=== PATIENT | female | born 1985 | race Caucasian/White ===

== ENCOUNTER 2020-01-21 10:30 | Emergency (ER) | payer MEDICAID ==
[~2020-01-21] VITALS: Ht 154.9 cm; Wt 83.0 kg
[2020-01-21 10:35] VITALS: BP_SYST 106
[2020-01-21] MEDS ORDERED: ACETAMINOPHEN 500 MG TABLET PO ONE (11:30)
[2020-01-21] MEDS ORDERED: CEPHALEXIN 500 MG CAPSULE PO ONE (12:00)
[2020-01-21 12:18] VITALS: BP_SYST 108
== END 2020-01-21 12:16 | disposition home or self-care (01) ==
LOC: SED 10:30
DX: O23.13 Infections of bladder in pregnancy, third trimester (principal); Z3A.32 32 weeks gestation of pregnancy
CPT/HCPCS: 59025; 81002; 99283

== ENCOUNTER 2020-09-28 18:46 | Inpatient (IN) | payer MEDICAID, SELFPAY ==
[~2020-09-28] VITALS: Ht 154.9 cm; Wt 67.6 kg
[2020-09-28 19:04] VITALS: BP_SYST 108
[2020-09-28 20:58] LABS: BLOOD, URINE 2+ (NEGATIVE); COLOR,URINE YELLOW (YELLOW); GLUCOSE,URINE NEGATIVE (NEGATIVE); KETONES,URINE NEGATIVE (NEGATIVE); LEUKOCYTE ESTERASE ,URINE 3+ (NEGATIVE); NITRITE, URINE NEGATIVE (NEGATIVE); PROTEIN URINE 1+ (NEGATIVE)
[2020-09-28] MEDS ORDERED: ONDANSETRON HCL 4 MG/2 ML VIAL IVP ONE (21:00)
[2020-09-28] MEDS ORDERED: NACL 0.9% 1,000 ML IV ONE (21:00)
[2020-09-28] MEDS ORDERED: PANTOPRAZOLE SODIUM 40 MG/VIAL (PROTONIX) IVP ONE (21:00)
[2020-09-28 21:08] LABS: BILIRUBIN,URINE NEGATIVE (NEGATIVE); CLARITY/URINE HAZY (CLEAR)
[2020-09-28 21:09] LABS: BACTERIA,URINE MANY /HPF (None Seen); RBC,URINE 0-3 /HPF (0-3); WBC,URINE 80-100 /HPF (0-3)
[2020-09-28 21:10] LABS: MUCUS,URINE None Seen /LPF (None Seen)
[2020-09-28 21:46] LABS: BASOPHILS % (AUTO) 0.3 % (0.0-2.0); EOSINOPHILS % (AUTO) 0.1 % (0.0-4.0); LYMPHOCYTES % (AUTO) 16.8 % (20.5-51.5); MEAN CORPUSCULAR HEMOGLOBIN 23 pg (27-31); MEAN CORPUSCULAR HGB CONC 31 % (32-36); MEAN CORPUSCULAR VOLUME 74 fL (79.0-98.0); MONOCYTES # (AUTO) 0.6 K/uL (0.0-1.0); MONOCYTES % (AUTO) 4.8 % (1.7-9.3); NEUTROPHILS # (AUTO) 9.4 K/uL (1.8-7.7); PLATELET COUNT (AUTO) 730 K/uL (130-430); RED CELL DISTRIBUTION WIDTH 17.5 % (9.0-15.0); WHITE BLOOD COUNT (AUTO) 12.1 K/uL (4.8-10.8)
[2020-09-28 21:53] LABS: HEMATOCRIT 9.9 % (36-48); RED BLOOD CELL COUNT(AUTO) 1.33 MIL/uL (4.2-6.2)
[2020-09-28 21:55] LABS: CALCIUM 8.9 mg/dL (8.4-11.0); CREATININE 1.27 mg/dL (0.55-1.30); POTASSIUM 3.1 mmol/L (3.5-5.1)
[2020-09-28 21:59] LABS: INR 1.1 (0.8-1.2)
[2020-09-28 22:01] LABS: ALBUMIN 1.5 g/dL (3.4-4.8); TOTAL BILIRUBIN 0.1 mg/dL (0.0-1.0)
[2020-09-28] MEDS ORDERED: HYDROcodone/ACETAMIN 5-325 MG TAB (NORCO/ VICODIN) PO PRN (22:45)
[2020-09-28] MEDS ORDERED: ALBUTEROL SULFATE 0.083% 2.5 MG/3 ML VIAL.NEB INH PRN (22:45)
[2020-09-28] MEDS: NACL 0.9% 1,000 ML IV SCH (23:28)
[2020-09-28] MEDS ORDERED: cefTRIAXone 1 GM IVPB PREMIX 50 ML IV ONE (23:30)
[2020-09-28] MEDS ORDERED: KCL 20 mEq in 100 mL (PREMIX) 100 ML IV ONE (23:45)
[2020-09-29] VITALS (25 sets, daily range): BP systolic 95–125
[2020-09-29] MEDS ORDERED: NACL 0.9% 1,000 ML IV ONE (06:00)
[2020-09-29] MEDS: ACETAMINOPHEN 325 MG TABLET PO PRN ×3 (08:50→23:34)
[2020-09-29] MEDS: NACL 0.9% 1,000 ML IV SCH (08:51)
[2020-09-29] MEDS ORDERED: PANTOPRAZOLE SODIUM 40 MG/VIAL (PROTONIX) IVP SCH (09:00)
[2020-09-29] MEDS ORDERED: ONDA-8 TL (13:41)
[2020-09-29] MEDS ORDERED: IBUP-1970 (13:41)
[2020-09-29 15:45] LABS: ALBUMIN 1.4 g/dL (3.4-4.8); CALCIUM 7.8 mg/dL (8.4-11.0); CREATININE 1.42 mg/dL (0.55-1.30); POTASSIUM 4.5 mmol/L (3.5-5.1); TOTAL BILIRUBIN 0.7 mg/dL (0.0-1.0)
[2020-09-29 15:55] LABS: MEAN CORPUSCULAR HGB CONC 33 % (32-36)
[2020-09-29 16:08] LABS: BASOPHILS % (AUTO) 0.3 % (0.0-2.0); EOSINOPHILS % (AUTO) 0.1 % (0.0-4.0); LYMPHOCYTES # (AUTO) 1.9 K/uL (1.0-5.5); LYMPHOCYTES % (AUTO) 11.4 % (20.5-51.5); MEAN CORPUSCULAR HEMOGLOBIN 27 pg (27-31); MEAN CORPUSCULAR VOLUME 83 fL (79.0-98.0); MONOCYTES # (AUTO) 0.8 K/uL (0.0-1.0); NEUTROPHILS # (AUTO) 13.7 K/uL (1.8-7.7); NEUTROPHILS % (AUTO) 83.2 % (40.0-70.0); PLATELET COUNT (AUTO) 675 K/uL (130-430); RED BLOOD CELL COUNT(AUTO) 2.29 MIL/uL (4.2-6.2); WHITE BLOOD COUNT (AUTO) 16.4 K/uL (4.8-10.8)
[2020-09-29 16:11] LABS: HEMOGLOBIN 6.3 g/dL (12.0-16.0)
[2020-09-29] MEDS: D5W 1,000 ML IV SCH (16:33)
[2020-09-29] MEDS ORDERED: LEVOFLOXACIN IN DEXTROSE 5 % 100 ML IV ONE (17:00)
[2020-09-29] MEDS: PANTOPRAZOLE SODIUM 40 MG in NS 50 ML IV SCH ×2 (17:11→21:42)
[2020-09-29] MEDS: metroNIDAZOLE 500 mg/NS 100 ML IV SCH (21:37)
[2020-09-29 23:50] LABS: BILIRUBIN,URINE 1+ (NEGATIVE); BLOOD, URINE NEGATIVE (NEGATIVE); CLARITY/URINE CLEAR (CLEAR); COLOR,URINE YELLOW (YELLOW); GLUCOSE,URINE NEGATIVE (NEGATIVE); KETONES,URINE NEGATIVE (NEGATIVE); LEUKOCYTE ESTERASE ,URINE 1+ (NEGATIVE); NITRITE, URINE NEGATIVE (NEGATIVE); PROTEIN URINE 1+ (NEGATIVE)
[2020-09-30] VITALS (24 sets, daily range): BP systolic 99–123
[2020-09-30 00:06] LABS: BACTERIA,URINE FEW /HPF (None Seen); RBC,URINE 0-3 /HPF (0-3); WBC,URINE 20-50 /HPF (0-3)
[2020-09-30 00:07] LABS: MUCUS,URINE 1+ /LPF (None Seen)
[2020-09-30] MEDS: PANTOPRAZOLE SODIUM 40 MG in NS 50 ML IV SCH ×5 (02:28→21:08)
[2020-09-30 03:45] LABS: BASOPHILS # (AUTO) 0.4 K/uL (0.0-0.2); BASOPHILS % (AUTO) 2.6 % (0.0-2.0); EOSINOPHILS % (AUTO) 0.1 % (0.0-4.0); HEMATOCRIT 26.6 % (36-48); HEMOGLOBIN 8.7 g/dL (12.0-16.0); LYMPHOCYTES # (AUTO) 1.1 K/uL (1.0-5.5); MEAN CORPUSCULAR HEMOGLOBIN 28 pg (27-31); MEAN CORPUSCULAR HGB CONC 33 % (32-36); MEAN CORPUSCULAR VOLUME 84 fL (79.0-98.0); MONOCYTES # (AUTO) 0.6 K/uL (0.0-1.0); MONOCYTES % (AUTO) 4.1 % (1.7-9.3); NEUTROPHILS # (AUTO) 13.4 K/uL (1.8-7.7); NEUTROPHILS % (AUTO) 86.2 % (40.0-70.0); PLATELET COUNT (AUTO) 560 K/uL (130-430); RED BLOOD CELL COUNT(AUTO) 3.15 MIL/uL (4.2-6.2); RED CELL DISTRIBUTION WIDTH 18.9 % (9.0-15.0); WHITE BLOOD COUNT (AUTO) 15.5 K/uL (4.8-10.8)
[2020-09-30 04:02] LABS: INR 1.2 (0.8-1.2); PROTHROMBIN TIME 12.4 SECS (9.5-12.5)
[2020-09-30 04:12] LABS: TOTAL IRON BIND. CAPACITY 199 ug/dL (250-450)
[2020-09-30] MEDS: D5W 1,000 ML IV SCH ×2 (06:05→13:15)
[2020-09-30] MEDS: ACETAMINOPHEN 325 MG TABLET PO PRN ×2 (08:04→13:16)
[2020-09-30] MEDS: metroNIDAZOLE 500 mg/NS 100 ML IV SCH ×2 (08:05→20:34)
[2020-09-30] MEDS: MORPHINE 4 MG/ML INJ. SYRINGE IVP PRN ×2 (08:05→22:38)
[2020-09-30] MEDS: ONDANSETRON HCL 4 MG/2 ML VIAL IVP PRN ×2 (08:05→22:36)
[2020-09-30] MEDS ORDERED: SIMETHICONE 40 MG/0.6 ML ML ONE (15:16)
[2020-09-30] MEDS ORDERED: fentaNYL CITRATE/PF 100 MCG/2 ML AMP ONE (15:17)
[2020-09-30] MEDS: MEPERIDINE 100 MG INJ. 100 MG/ML VIAL ONE ×3 (16:01→16:09)
[2020-09-30] MEDS: MIDAZOLAM HCL 5 MG/5 ML VIAL ONE ×3 (16:01→16:08)
[2020-09-30] MEDS ORDERED: LEVOFLOXACIN 250 MG/D5W 50 ML IV SCH (17:00)
[2020-10-01] VITALS (21 sets, daily range): BP systolic 95–126
[2020-10-01] MEDS: ACETAMINOPHEN 325 MG TABLET PO PRN ×2 (00:38→12:53)
[2020-10-01] MEDS: D5W 1,000 ML IV SCH ×3 (01:29→18:49)
[2020-10-01] MEDS: PANTOPRAZOLE SODIUM 40 MG in NS 50 ML IV SCH ×4 (02:50→18:50)
[2020-10-01 06:30] LABS: BASOPHILS % (AUTO) 0.3 % (0.0-2.0); EOSINOPHILS % (AUTO) 0.1 % (0.0-4.0); HEMATOCRIT 22.7 % (36-48); HEMOGLOBIN 7.4 g/dL (12.0-16.0); LYMPHOCYTES # (AUTO) 1.7 K/uL (1.0-5.5); LYMPHOCYTES % (AUTO) 11.3 % (20.5-51.5); MEAN CORPUSCULAR HEMOGLOBIN 28 pg (27-31); MEAN CORPUSCULAR HGB CONC 33 % (32-36); MEAN CORPUSCULAR VOLUME 85 fL (79.0-98.0); MONOCYTES # (AUTO) 0.5 K/uL (0.0-1.0); MONOCYTES % (AUTO) 3.6 % (1.7-9.3); NEUTROPHILS # (AUTO) 12.7 K/uL (1.8-7.7); NEUTROPHILS % (AUTO) 84.7 % (40.0-70.0); PLATELET COUNT (AUTO) 439 K/uL (130-430); RED BLOOD CELL COUNT(AUTO) 2.67 MIL/uL (4.2-6.2); RED CELL DISTRIBUTION WIDTH 19.8 % (9.0-15.0)
[2020-10-01 06:34] LABS: ALBUMIN 1.1 g/dL (3.4-4.8); CALCIUM 7.5 mg/dL (8.4-11.0); CREATININE 1.04 mg/dL (0.55-1.30); POTASSIUM 3.5 mmol/L (3.5-5.1); TOTAL BILIRUBIN 0.3 mg/dL (0.0-1.0)
[2020-10-01 08:06] LABS: FOLATE (FOLIC ACID) 5.9 ng/mL (>3.0)
[2020-10-01] MEDS: metroNIDAZOLE 500 mg/NS 100 ML IV SCH ×2 (08:16→21:49)
[2020-10-01] MEDS ORDERED: COMMUNICATION ORDER XX ONE ×2 (09:15→09:30)
[2020-10-01] MEDS: PIPERACILLIN/TAZO 3.375/DEX-IS 50 ML IV SCH ×3 (10:32→21:52)
[2020-10-01] MEDS ORDERED: LIDOCAINE 1%, 20 ML MDV 20 ML ONE (10:38)
[2020-10-01] MEDS ORDERED: ETOMIDATE 20 MG/ 10 ML VIAL (AMIDATE) IVP PRN (11:30)
[2020-10-01] MEDS ORDERED: ETOMIDATE 20 MG/ 10 ML VIAL (AMIDATE) IVP ONE (11:30)
[2020-10-01] MEDS ORDERED: NALOXONE HCL 2 MG/2 ML SYR ONE (11:32)
[2020-10-01] MEDS: MORPHINE 4 MG/ML INJ. SYRINGE IVP PRN ×2 (12:55→17:50)
[2020-10-01 16:08] LABS: HEMOGLOBIN 7.8 g/dL (12.0-16.0)
[2020-10-01] MEDS ORDERED: LEVOFLOXACIN IN DEXTROSE IV SCH (17:00)
[2020-10-02] MEDS: PANTOPRAZOLE SODIUM 40 MG in NS 50 ML IV SCH ×5 (00:17→20:49)
[2020-10-02] MEDS: PIPERACILLIN/TAZO 3.375/DEX-IS 50 ML IV SCH ×2 (04:02→11:03)
[2020-10-02] MEDS: D5W 1,000 ML IV SCH ×2 (04:12→20:53)
[2020-10-02 06:43] LABS: CALCIUM 7.6 mg/dL (8.4-11.0); CREATININE 0.97 mg/dL (0.55-1.30); POTASSIUM 3.4 mmol/L (3.5-5.1)
[2020-10-02 08:00] VITALS: BP_SYST 122
[2020-10-02] MEDS: metroNIDAZOLE 500 mg/NS 100 ML IV SCH ×2 (08:25→20:48)
[2020-10-02 09:01] LABS: BASOPHILS % (AUTO) 0.2 % (0.0-2.0); EOSINOPHILS % (AUTO) 0.1 % (0.0-4.0); HEMATOCRIT 22.2 % (36-48); HEMOGLOBIN 7.1 g/dL (12.0-16.0); LYMPHOCYTES # (AUTO) 1.3 K/uL (1.0-5.5); LYMPHOCYTES % (AUTO) 9.4 % (20.5-51.5); MEAN CORPUSCULAR HEMOGLOBIN 27 pg (27-31); MEAN CORPUSCULAR HGB CONC 32 % (32-36); MEAN CORPUSCULAR VOLUME 85 fL (79.0-98.0); MONOCYTES # (AUTO) 0.5 K/uL (0.0-1.0); MONOCYTES % (AUTO) 3.6 % (1.7-9.3); NEUTROPHILS # (AUTO) 11.7 K/uL (1.8-7.7); NEUTROPHILS % (AUTO) 86.7 % (40.0-70.0); PLATELET COUNT (AUTO) 447 K/uL (130-430); RED BLOOD CELL COUNT(AUTO) 2.61 MIL/uL (4.2-6.2); RED CELL DISTRIBUTION WIDTH 20.2 % (9.0-15.0); WHITE BLOOD COUNT (AUTO) 13.5 K/uL (4.8-10.8)
[2020-10-02 11:30] VITALS: BP_SYST 107
[2020-10-02 15:28] VITALS: BP_SYST 109
[2020-10-02 17:35] LABS: HEMATOCRIT 20.4 % (36-48); HEMOGLOBIN 6.7 g/dL (12.0-16.0)
[2020-10-02 20:00] VITALS: BP_SYST 107
[2020-10-02] MEDS ORDERED: SOD FERRIC GLUC COMPLEX/SUC 125 MG in NS 100 ML IV SCH (23:45)
[2020-10-03] MEDS: D5W 1,000 ML IV SCH ×3 (00:30→20:47)
[2020-10-03 01:00] VITALS: BP_SYST 108
[2020-10-03 08:45] VITALS: BP_SYST 113
[2020-10-03] MEDS: PANTOPRAZOLE SODIUM 40 MG in NS 50 ML IV SCH (08:45)
[2020-10-03] MEDS ORDERED: SOD FERRIC GLUC COMPLEX/SUC 125 MG in NS 100 ML IV SCH (09:00)
[2020-10-03] MEDS: metroNIDAZOLE 500 mg/NS 100 ML IV SCH ×2 (10:23→20:47)
[2020-10-03 11:37] VITALS: BP_SYST 108
[2020-10-03 11:42] LABS: BASOPHILS % (AUTO) 0.4 % (0.0-2.0); EOSINOPHILS % (AUTO) 0.3 % (0.0-4.0); HEMATOCRIT 24.4 % (36-48); HEMOGLOBIN 8.2 g/dL (12.0-16.0); LYMPHOCYTES # (AUTO) 1.4 K/uL (1.0-5.5); LYMPHOCYTES % (AUTO) 14.1 % (20.5-51.5); MEAN CORPUSCULAR HEMOGLOBIN 29 pg (27-31); MEAN CORPUSCULAR HGB CONC 33 % (32-36); MEAN CORPUSCULAR VOLUME 85 fL (79.0-98.0); MONOCYTES # (AUTO) 0.4 K/uL (0.0-1.0); MONOCYTES % (AUTO) 4.2 % (1.7-9.3); NEUTROPHILS # (AUTO) 8.1 K/uL (1.8-7.7); PLATELET COUNT (AUTO) 408 K/uL (130-430); RED BLOOD CELL COUNT(AUTO) 2.86 MIL/uL (4.2-6.2); RED CELL DISTRIBUTION WIDTH 19.2 % (9.0-15.0)
[2020-10-03 11:55] LABS: CALCIUM 7.4 mg/dL (8.4-11.0); CREATININE 0.9 mg/dL (0.55-1.30); POTASSIUM 3.7 mmol/L (3.5-5.1)
[2020-10-03 12:01] LABS: ALBUMIN 1.2 g/dL (3.4-4.8); TOTAL BILIRUBIN 0.2 mg/dL (0.0-1.0)
[2020-10-03 15:18] VITALS: BP_SYST 109
[2020-10-03 17:32] LABS: HEMATOCRIT 24.9 % (36-48); HEMOGLOBIN 8.3 g/dL (12.0-16.0)
[2020-10-03] MEDS ORDERED: PANTOPRAZOLE SODIUM 40 MG/VIAL (PROTONIX) IVP SCH (21:00)
[2020-10-04 00:27] VITALS: BP_SYST 105
[2020-10-04 04:00] VITALS: BP_SYST 104
[2020-10-04 11:07] LABS: AMEBIASIS ANTIBODIES Negative (Negative)
== END 2020-10-04 04:50 | disposition short-term general hospital (02) | DRG 720 ==
LOC: SED 18:46 → SIC 22:40 → STU 10-01 19:00
PROVIDERS: ADMIT Internal Medicine Hospice and Palliative Medicine; ATTEND Internal Medicine Hospice and Palliative Medicine
PROC: 30233N1 Transfusion of Nonautologous Red Blood Cells into Peripheral Vein, Percutaneous Approach (ICD-10-PCS; 2020-09-29)
PROC: 0DB78ZX Excision of Stomach, Pylorus, Via Natural or Artificial Opening Endoscopic, Diagnostic (ICD-10-PCS; 2020-09-30)
PROC: 0DB98ZX Excision of Duodenum, Via Natural or Artificial Opening Endoscopic, Diagnostic (ICD-10-PCS; principal; 2020-09-30 16:00)
PROC: 0T9030Z Drainage of Right Kidney with Drainage Device, Percutaneous Approach (ICD-10-PCS; 2020-10-02)
DX: A41.9 Sepsis, unspecified organism (principal); J90 Pleural effusion, not elsewhere classified; K26.4 Chronic or unspecified duodenal ulcer with hemorrhage; K68.12 Psoas muscle abscess; N39.0 Urinary tract infection, site not specified; B96.20 Unspecified Escherichia coli [E. coli] as the cause of diseases classified elsewhere; E87.6 Hypokalemia; D62 Acute posthemorrhagic anemia; N13.6 Pyonephrosis; K20.91 Esophagitis, unspecified with bleeding; K44.9 Diaphragmatic hernia without obstruction or gangrene; Z20.822 Contact with and (suspected) exposure to COVID-19; E43 Unspecified severe protein-calorie malnutrition; K76.9 Liver disease, unspecified; Z98.891 History of uterine scar from previous surgery; Z68.28 Body mass index [BMI] 28.0-28.9, adult
CPT/HCPCS: 36415; 43239; 71045; 76376; 76604; 76856-TC; 77012; 80048; 80053; 81000-TC; 82272; 82607; 82728; 82746; 83540-TC; 83550-TC; 83690-TC; 84703; 85018-TC; 85025; 85044-TC; 85610-TC; 85651-TC; 85730-TC; 86480; 86635; 86753; 86870; 86886; 86900; 86901; 86920; 87040-TC; 87081; 87086; 88305; 88312; 88313; 93005; 93306; 94760; 96361; 96365; 96366; 96375; C1729; C1751; C1769; C9113; G0378; J0696; J1956; J2001; J2175; J2250; J2270; J2310; J2405; J2543; J2916; J3010; J3480; J3490; J7030; J7040; J7042; J7050; J7060; P9021; Q9967

== ENCOUNTER 2021-04-07 12:14 | Emergency (ER) | payer MEDICAID, SELFPAY ==
[~2021-04-07] VITALS: Ht 154.9 cm; Wt 66.7 kg
[~2021-04-07 12:14] MED LIST: HYDR-3917 PO; LEVO500T89 PO; OMEP40CA20 PO; ONDA-8 TL
[2021-04-07 12:50] VITALS: BP_SYST 116
[2021-04-07] MEDS ORDERED: IBUP-1969 PO (13:49)
[2021-04-07] MEDS ORDERED: HYDR-3917 PO (13:49)
[2021-04-07 13:59] VITALS: BP_SYST 116
== END 2021-04-07 13:59 | disposition home or self-care (01) ==
LOC: SED 12:14
DX: S63.502A Unspecified sprain of left wrist, initial encounter (principal); Z79.899 Other long term (current) drug therapy; X50.0XXA Overexertion from strenuous movement or load, initial encounter; Y93.89 Activity, other specified; Y92.89 Other specified places as the place of occurrence of the external cause; Y99.8 Other external cause status
CPT/HCPCS: 99283

== ENCOUNTER 2021-06-01 00:09 | Emergency (ER) | payer MEDICAID ==
[~2021-06-01] VITALS: Ht 154.9 cm; Wt 66.7 kg
[~2021-06-01 00:09] MED LIST changes: +IBUP-1969 PO
--- NOTE | 2021-06-01 00:30 | NUR ---
Placed in room 04. Placed on rn cardiac cath, blood pressure machine and pulse oximeter. To gown for exam. Side rails up.
[2021-06-01 00:35] VITALS: BP_SYST 143
--- NOTE | 2021-06-01 00:40 | NUR ---
pt arrived for r sided lower wisdom tooth pain. 04/14 pain. pt states it is cracked and has an appointment with her dentist but it sint til later. a&ox4. pt states she has joey this pain before
--- NOTE | 2021-06-01 01:04 | NUR ---
ER Dr. Mathur at bedside examining patient.
[2021-06-01] MEDS ORDERED: AMOX-423 PO (01:08)
[2021-06-01] MEDS ORDERED: AMOXICILLIN/CLAVULANATE POTASSIUM 250 MG/5 ML, 75 ML BTL PO ONE (01:15)
[2021-06-01] MEDS ORDERED: KETOROLAC TROMETHAMINE 60 MG/2 ML VIAL IM ONE ×2 (01:15→01:19)
[2021-06-01] MEDS ORDERED: AMOXICILLIN/CLAVULANATE POTASSIUM 500 MG TABLET ONE (01:19)
[2021-06-01 01:26] VITALS: BP_SYST 143
--- NOTE | 2021-06-01 01:28 | NUR ---
Patient given written and verbal discharge instructions and verbalizes understanding. ER MD discussed with patient the results and treatment provided. Patient in stable condition. ID arm band removed. Rx of augmentin given. Patient educated on pain management and to follow up with PMD. Pain Scale 8/10. Opportunity for questions provided and answered. Medication side effect fact sheet provided.
[2021-06-01] MEDS ORDERED: AMOXICILLIN/CLAVULANATE POTASSIUM 500 MG TABLET PO ONE (01:30)
[2021-06-01] MEDS ORDERED: IBUP-1971 PO (05:52)
== END 2021-06-01 01:28 | disposition home or self-care (01) ==
LOC: SED 00:09
DX: K08.89 Other specified disorders of teeth and supporting structures (principal); Z79.899 Other long term (current) drug therapy
CPT/HCPCS: 96372; 99283; J1885

== ENCOUNTER 2021-06-29 19:16 | Day surgery (SDC) | payer MEDICAID, SELFPAY ==
[~2021-06-29] VITALS: Ht 154.9 cm; Wt 71.7 kg
[~2021-06-29 19:16] MED LIST changes: +AMOX-423 PO; +IBUP-1971 PO; -LEVO500T89 PO; +LEVO500T90 PO
[2021-06-29 19:27] VITALS: BP_SYST 104
[2021-06-29 20:33] LABS: BASOPHILS # (AUTO) 0.1 K/uL (0.0-0.2); BASOPHILS % (AUTO) 0.6 % (0.0-2.0); EOSINOPHILS # (AUTO) 0.1 K/uL (0.0-0.4); EOSINOPHILS % (AUTO) 0.6 % (0.0-4.0); HEMATOCRIT 26.2 % (36-48); HEMOGLOBIN 8.8 g/dL (12.0-16.0); LYMPHOCYTES # (AUTO) 2.6 K/uL (1.0-5.5); LYMPHOCYTES % (AUTO) 24.4 % (20.5-51.5); MEAN CORPUSCULAR HEMOGLOBIN 28 pg (27-31); MEAN CORPUSCULAR HGB CONC 34 % (32-36); MEAN CORPUSCULAR VOLUME 82 fL (79.0-98.0); MONOCYTES # (AUTO) 0.6 K/uL (0.0-1.0); MONOCYTES % (AUTO) 5.4 % (1.7-9.3); NEUTROPHILS # (AUTO) 7.4 K/uL (1.8-7.7); PLATELET COUNT (AUTO) 302 K/uL (130-430); RED BLOOD CELL COUNT(AUTO) 3.18 MIL/uL (4.2-6.2); RED CELL DISTRIBUTION WIDTH 13.9 % (9.0-15.0); WHITE BLOOD COUNT (AUTO) 10.7 K/uL (4.8-10.8)
[2021-06-29 20:34] LABS: CALCIUM 8.6 mg/dL (8.4-11.0); CREATININE 0.93 mg/dL (0.55-1.30); POTASSIUM 3.7 mmol/L (3.5-5.1)
[2021-06-29] MEDS ORDERED: NACL 0.9% 1,000 ML IV ONE ×2 (21:00→23:30)
[2021-06-29 21:01] LABS: ALBUMIN 2.8 g/dL (3.4-4.8); TOTAL BILIRUBIN 0.1 mg/dL (0.0-1.0)
[2021-06-29] MEDS ORDERED: fentaNYL CITRATE/PF 100 MCG/2 ML AMP IM ONE (23:15)
[2021-06-30] MEDS ORDERED: OXYTOCIN 10 UNIT/ML VIAL IM ONE
[2021-06-30] MEDS ORDERED: PROPOFOL 200MG/ 20ML VIAL (DIPRIVAN) IV ONE (01:38)
[2021-06-30] MEDS ORDERED: LR 1,000 ML IV.SOLN IV ONE (01:38)
[2021-06-30] MEDS ORDERED: ONDANSETRON HCL 4 MG/2 ML VIAL IVP ONE (01:38)
[2021-06-30] MEDS ORDERED: OXYTOCIN 10 UNIT/ML VIAL IV ONE (01:38)
[2021-06-30] MEDS ORDERED: SUCCINYLCHOLINE CHLORIDE 20 MG/ML(QUELICIN) IVP ONE (01:38)
[2021-06-30] MEDS ORDERED: NS IRRIG SOLN 1000 ML IR ONE (01:38)
[2021-06-30] MEDS ORDERED: GLYCOPYRROLATE 0.2 MG/ML VIAL IJ ONE (01:38)
[2021-06-30] MEDS ORDERED: LIDOCAINE PF 2%, 200 MG/10 ML AMPUL.LUER (EPIDURAL) INJ ONE (01:38)
[2021-06-30] MEDS ORDERED: KETOROLAC TROMETHAMINE 30 MG VIAL IVP ONE (01:38)
[2021-06-30] MEDS ORDERED: METOCLOPRAMIDE HCL 10 MG/2 ML VIAL IVP ONE (01:38)
[2021-06-30] MEDS ORDERED: SEVOFLURANE 15 MIN GAS INH ONE (01:38)
[2021-06-30] MEDS ORDERED: fentaNYL CITRATE 250 MCG/5 ML AMP IV ONE (01:38)
[2021-06-30] MEDS ORDERED: WATER FOR IRRIGATION,STERILE 1,000 ML IRRIG.SOLN IR ONE (01:38)
[2021-06-30] MEDS ORDERED: OXYCODONE/ACETAMINOPHEN 5-325 TABLET PO PRN ×2 (02:15)
[2021-06-30] MEDS ORDERED: ONDANSETRON HCL 4 MG/2 ML VIAL IVP PRN ×2 (02:15→02:30)
[2021-06-30] MEDS ORDERED: HYDROcodone/ACETAMIN 5-325 MG TAB (NORCO/ VICODIN) PO PRN (02:15)
[2021-06-30] MEDS ORDERED: LR 1,000 ML IV SCH (02:30)
[2021-06-30] MEDS ORDERED: HYDROmorphone 2 MG/ML VIAL IVP PRN (02:30)
[2021-06-30] MEDS ORDERED: METOCLOPRAMIDE HCL 10 MG/2 ML VIAL IVP PRN (02:30)
[2021-06-30] MEDS ORDERED: KETOROLAC TROMETHAMINE 30 MG VIAL IVP PRN (02:30)
[2021-06-30] MEDS ORDERED: HYDROmorphone 1 MG/ML INJ. CARTRIDGE IVP PRN (02:30)
[2021-06-30 04:45] VITALS: BP_SYST 98
[2021-06-30 08:25] VITALS: BP_SYST 122
== END 2021-06-30 05:00 | disposition home or self-care (01) ==
LOC: SED 19:16 → SDS 23:56 → SMU 23:56 → SED 06-30 01:30 → SDS 06-30 05:00
PROVIDERS: ATTEND Specialist
DX: O03.4 Incomplete spontaneous abortion without complication (principal); D64.9 Anemia, unspecified; Z79.899 Other long term (current) drug therapy
CPT/HCPCS: 36415; 59812; 76801; 76817; 80053; 84702; 85025; 86886; 86900; 86901; 86920; 87426; 88305; 93005; 96360; 96361; 96372; 99285; J0330; J1885; J2001; J2405; J2590; J2704; J2765; J3010; J3490; J7030; J7120

== ENCOUNTER 2021-10-29 19:49 | Emergency (ER) | payer BC, MEDICAID ==
[~2021-10-29] VITALS: Ht 154.9 cm; Wt 76.2 kg
[2021-10-29 20:01] VITALS: BP_SYST 116
--- NOTE | 2021-10-29 22:17 | NUR ---
Pt brought by self, A&Ox4, pt presents to ER with L wrist, L shoulder pain since yesterday, pt works picking up boxes, denies trauma, skin pink and warm, cap refill<3, VSS
--- NOTE | 2021-10-29 22:45 | NUR ---
Dr Jane evaluating patient in the triage room
[2021-10-29] MEDS ORDERED: NAPR-1172 PO (22:51)
[2021-10-29 22:57] VITALS: BP_SYST 116
--- NOTE | 2021-10-29 22:59 | NUR ---
Patient given written and verbal discharge instructions and verbalizes understanding. ER MD discussed with patient the results and treatment provided. Patient in stable condition. ID arm band removed. Rx of Naproxen given. Patient educated on pain management and to follow up with PMD. Pain Scale 2/10 . Opportunity for questions provided and answered. Medication side effect fact sheet provided.
== END 2021-10-29 22:59 | disposition home or self-care (01) ==
LOC: SED 19:49
DX: M77.8 Other enthesopathies, not elsewhere classified (principal); Z79.899 Other long term (current) drug therapy
CPT/HCPCS: 73030; 99284

== ENCOUNTER 2021-12-01 08:27 | Emergency (ER) | payer BC, MEDICAID ==
[~2021-12-01] VITALS: Ht 154.9 cm; Wt 73.9 kg
[~2021-12-01 08:27] MED LIST changes: -AMOX-423 PO; -HYDR-3917 PO; -IBUP-1969 PO; -IBUP-1971 PO; -LEVO500T90 PO; +NAPR-1172 PO; -OMEP40CA20 PO; -ONDA-8 TL
--- NOTE | 2021-12-01 09:06 | NUR ---
DR SNOWDEN AT BEDSIDE EXAMINING PT.
--- NOTE | 2021-12-01 09:20 | NUR ---
TRANSPORTED TO ULTRASOUND DEPT.
[2021-12-01 09:39] LABS: BASOPHILS % (AUTO) 0.8 % (0.0-2.0); EOSINOPHILS # (AUTO) 0.1 K/uL (0.0-0.4); HEMATOCRIT 28.5 % (36-48); HEMOGLOBIN 8.8 g/dL (12.0-16.0); LYMPHOCYTES # (AUTO) 1.5 K/uL (1.0-5.5); LYMPHOCYTES % (AUTO) 25.6 % (20.5-51.5); MEAN CORPUSCULAR HEMOGLOBIN 20 pg (27-31); MEAN CORPUSCULAR HGB CONC 31 % (32-36); MEAN CORPUSCULAR VOLUME 64 fL (79.0-98.0); MONOCYTES # (AUTO) 0.3 K/uL (0.0-1.0); MONOCYTES % (AUTO) 5.8 % (1.7-9.3); NEUTROPHILS # (AUTO) 3.9 K/uL (1.8-7.7); NEUTROPHILS % (AUTO) 66.8 % (40.0-70.0); PLATELET COUNT (AUTO) 328 K/uL (130-430); RED BLOOD CELL COUNT(AUTO) 4.49 MIL/uL (4.2-6.2); RED CELL DISTRIBUTION WIDTH 20.1 % (9.0-15.0); WHITE BLOOD COUNT (AUTO) 5.8 K/uL (4.8-10.8)
[2021-12-01 09:56] LABS: PROTHROMBIN TIME 9.7 SECS (9.5-12.5)
--- NOTE | 2021-12-01 11:42 | NUR ---
Patient given written and verbal discharge instructions and verbalizes understanding. ER MD DR SNOWDEN discussed with patient the results and treatment provided. Patient in stable condition. ID arm band removed. Patient educated on pain management and to follow up with PMD. Pain Scale 0 . Opportunity for questions provided and answered. Medication side effect fact sheet provided.
== END 2021-12-01 11:45 | disposition home or self-care (01) ==
LOC: SED 08:27
DX: O20.9 Hemorrhage in early pregnancy, unspecified (principal); Z79.899 Other long term (current) drug therapy
CPT/HCPCS: 36415; 76801; 84702; 85025; 85610-TC; 85730-TC; 86900; 86901; 99284

== ENCOUNTER 2021-12-04 14:09 | Emergency (ER) | payer BC, MEDICAID ==
[~2021-12-04] VITALS: Ht 154.9 cm; Wt 73.9 kg
[2021-12-04 14:20] VITALS: BP_SYST 108
--- NOTE | 2021-12-04 14:20 | NUR ---
pt. triaged, placed back to WR
--- NOTE | 2021-12-04 14:20 | NUR ---
Pt. came in to be evaluated for related vaginal bleeding, pt. states she is about 7 weeks but has been bleeding since at least thursday, came in thursday and was told to f/u, bleeding continues to occur and is heavier
--- NOTE | 2021-12-04 14:27 | NUR ---
ER in triage examining patient.
[2021-12-04 16:05] LABS: BASOPHILS # (AUTO) 0.1 K/uL (0.0-0.2); BASOPHILS % (AUTO) 0.7 % (0.0-2.0); EOSINOPHILS # (AUTO) 0.1 K/uL (0.0-0.4); EOSINOPHILS % (AUTO) 0.8 % (0.0-4.0); HEMATOCRIT 28.7 % (36-48); HEMOGLOBIN 8.9 g/dL (12.0-16.0); LYMPHOCYTES # (AUTO) 2.1 K/uL (1.0-5.5); LYMPHOCYTES % (AUTO) 26.5 % (20.5-51.5); MEAN CORPUSCULAR HEMOGLOBIN 20 pg (27-31); MEAN CORPUSCULAR HGB CONC 31 % (32-36); MEAN CORPUSCULAR VOLUME 63 fL (79.0-98.0); MONOCYTES # (AUTO) 0.4 K/uL (0.0-1.0); MONOCYTES % (AUTO) 4.5 % (1.7-9.3); NEUTROPHILS # (AUTO) 5.3 K/uL (1.8-7.7); NEUTROPHILS % (AUTO) 67.5 % (40.0-70.0); PLATELET COUNT (AUTO) 378 K/uL (130-430); RED BLOOD CELL COUNT(AUTO) 4.54 MIL/uL (4.2-6.2); RED CELL DISTRIBUTION WIDTH 19.8 % (9.0-15.0); WHITE BLOOD COUNT (AUTO) 7.8 K/uL (4.8-10.8)
--- NOTE | 2021-12-04 16:07 | NUR ---
labs have been drawn
--- NOTE | 2021-12-04 16:55 | NUR ---
PT. STILL WAITING UPDATE GIVEN
[2021-12-04 18:05] VITALS: BP_SYST 120
--- NOTE | 2021-12-04 18:05 | NUR ---
Patient given written and verbal discharge instructions and verbalizes understanding. discussed with patient the results and treatment provided. Patient in stable condition. ID arm band removed. Patient educated on pain management and to follow up thursday here. Opportunity for questions provided and answered.
== END 2021-12-04 18:05 | disposition home or self-care (01) ==
LOC: SED 14:09
DX: O20.9 Hemorrhage in early pregnancy, unspecified (principal); Z79.899 Other long term (current) drug therapy; Z3A.01 Less than 8 weeks gestation of pregnancy
CPT/HCPCS: 36415; 81002; 81025; 84702; 85025; 99283

== ENCOUNTER 2021-12-08 17:48 | Emergency (ER) | payer BC, MEDICAID ==
[~2021-12-08] VITALS: Ht 154.9 cm; Wt 77.1 kg
[2021-12-08 17:48] VITALS: BP_SYST 122
[2021-12-08] MEDS ORDERED: DIPH-TET-PERTUS Vaccine 0.5 ML VIAL (ADACEL) I.M. ONE (18:15)
[2021-12-08] MEDS ORDERED: LIDOCAINE 1% 10 MG/ML, 20 ML MDV INJ ONE (18:15)
[2021-12-08] MEDS ORDERED: BACITRACIN 1 GM OINT TP ONE (18:15)
[2021-12-08 18:45] LABS: EOSINOPHILS # (AUTO) 0.1 K/uL (0.0-0.4); HEMOGLOBIN 8.1 g/dL (12.0-16.0); PLATELET COUNT (AUTO) 356 K/uL (130-430); WHITE BLOOD COUNT (AUTO) 7.9 K/uL (4.8-10.8)
[2021-12-08 18:57] LABS: BASOPHILS % (AUTO) 0.6 % (0.0-2.0); EOSINOPHILS % (AUTO) 1.7 % (0.0-4.0); HEMATOCRIT 26.6 % (36-48); LYMPHOCYTES # (AUTO) 2.1 K/uL (1.0-5.5); LYMPHOCYTES % (AUTO) 26.2 % (20.5-51.5); MEAN CORPUSCULAR HEMOGLOBIN 20 pg (27-31); MEAN CORPUSCULAR HGB CONC 31 % (32-36); MEAN CORPUSCULAR VOLUME 65 fL (79.0-98.0); MONOCYTES # (AUTO) 0.5 K/uL (0.0-1.0); MONOCYTES % (AUTO) 6.6 % (1.7-9.3); NEUTROPHILS # (AUTO) 5.1 K/uL (1.8-7.7); NEUTROPHILS % (AUTO) 64.9 % (40.0-70.0)
[2021-12-08 21:35] VITALS: BP_SYST 127
== END 2021-12-08 21:35 | disposition home or self-care (01) ==
LOC: SED 17:48
DX: O20.9 Hemorrhage in early pregnancy, unspecified (principal); Z79.899 Other long term (current) drug therapy; Z3A.08 8 weeks gestation of pregnancy
CPT/HCPCS: 36415; 76801; 84702; 85025; 99284

== ENCOUNTER 2022-01-03 15:52 | Emergency (ER) | payer BC, MEDICAID ==
[~2022-01-03] VITALS: Ht 154.9 cm; Wt 77.1 kg
[2022-01-03 16:47] VITALS: BP_SYST 116
--- NOTE | 2022-01-03 16:50 | NUR ---
Patient triaged and placed in waiting room. VSS and patient appears in no acute distress at this time. Accompanied by SON, awaiting available bed, and MD notified of need for MSE.
--- NOTE | 2022-01-03 22:10 | NUR ---
Patient to [facility] for evaluation. Report given to MARISELA Agudelo
--- NOTE | 2022-01-03 22:11 | NUR ---
Patient brought in from home accompanied by son complaining of left ankle pain x1 week. Patient states that she tripped over a plywood twice in the last week. Patient reports that she usually wears steel toed boots at work and has not aggravated her but today pain is 6 out of 10. Patient seen limping. Pedal pulses present. No acute distress noted.
--- NOTE | 2022-01-03 22:12 | NUR ---
ER at bedside examining patient.
[2022-01-03] MEDS ORDERED: IBUP-1969 PO (22:50)
[2022-01-03 22:57] VITALS: BP_SYST 110
--- NOTE | 2022-01-03 22:57 | NUR ---
Patient given written and verbal discharge instructions and verbalizes understanding. ER MD discussed with patient the results and treatment provided. Patient in stable condition. ID arm band removed. Patient educated on pain management and to follow up with PMD. Pain Scale 4/10 Opportunity for questions provided and answered.
== END 2022-01-03 22:57 | disposition home or self-care (01) ==
LOC: SED 15:52
DX: S93.402A Sprain of unspecified ligament of left ankle, initial encounter (principal); Z79.899 Other long term (current) drug therapy; W01.0XXA Fall on same level from slipping, tripping and stumbling without subsequent striking against object, initial encounter; Y93.89 Activity, other specified; Y92.89 Other specified places as the place of occurrence of the external cause; Y99.8 Other external cause status
CPT/HCPCS: 99283

== ENCOUNTER 2022-04-07 01:41 | Emergency (ER) | payer MEDICAID ==
[~2022-04-07] VITALS: Ht 154.9 cm; Wt 84.4 kg
[~2022-04-07 01:41] MED LIST changes: +IBUP-1969 PO
[2022-04-07 01:53] VITALS: BP_SYST 102
--- NOTE | 2022-04-07 02:14 | NUR ---
Patient triaged and placed in room 4. VSS and patient appears in no acute distress at this time. MD Brar notified of need for MSE. Report given to MARISELA Le.
--- NOTE | 2022-04-07 02:15 | NUR ---
Urine collected and sent to lab. Preg test: (+)
--- NOTE | 2022-04-07 02:54 | NUR ---
receved pt resting in bed, states she has backpains pain 5/10 urine sent to lab. awaits review by
[2022-04-07] MEDS ORDERED: ACETAMINOPHEN 500 MG TABLET PO ONE (03:15)
--- NOTE | 2022-04-07 04:00 | NUR ---
PT RESTING IN BED .SHE DENIES PAIN VITALS WNL
--- NOTE | 2022-04-07 06:08 | NUR ---
VITALS WNL PT SLEEPIN QUELTY
--- NOTE | 2022-04-07 06:42 | NUR ---
CARY WREN REVIEWED URINE RESULTS FOR PREG TEST-POS
[2022-04-07 06:57] LABS: BILIRUBIN,URINE NEGATIVE (NEGATIVE); BLOOD, URINE NEGATIVE (NEGATIVE); CLARITY/URINE CLEAR (CLEAR); COLOR,URINE YELLOW (YELLOW); GLUCOSE,URINE NEGATIVE (NEGATIVE); KETONES,URINE NEGATIVE (NEGATIVE); LEUKOCYTE ESTERASE ,URINE NEGATIVE (NEGATIVE); NITRITE, URINE NEGATIVE (NEGATIVE); PROTEIN URINE NEGATIVE (NEGATIVE); UROBILINOGEN,URINE 0.2 (0.2-1.0)
[2022-04-07 07:04] LABS: BASOPHILS % (AUTO) 0.6 % (0.0-2.0); EOSINOPHILS # (AUTO) 0.1 K/uL (0.0-0.4); EOSINOPHILS % (AUTO) 0.8 % (0.0-4.0); HEMATOCRIT 32.5 % (36-48); LYMPHOCYTES # (AUTO) 2.3 K/uL (1.0-5.5); LYMPHOCYTES % (AUTO) 32.8 % (20.5-51.5); MEAN CORPUSCULAR VOLUME 69 fL (79.0-98.0); MONOCYTES # (AUTO) 0.4 K/uL (0.0-1.0); NEUTROPHILS # (AUTO) 4.2 K/uL (1.8-7.7); NEUTROPHILS % (AUTO) 59.8 % (40.0-70.0); PLATELET COUNT (AUTO) 289 K/uL (130-430); RED BLOOD CELL COUNT(AUTO) 4.69 MIL/uL (4.2-6.2); RED CELL DISTRIBUTION WIDTH 19.6 % (9.0-15.0)
--- NOTE | 2022-04-07 07:11 | NUR ---
PT TAKEN TO UTRA SOUND .
--- NOTE | 2022-04-07 07:20 | NUR ---
received report from jeff parker. pt aao x4. resp even and nonlabored. vss. pending dispo
[2022-04-07] MEDS ORDERED: IBUPROFEN 800 MG TABLET PO ONE (07:45)
[2022-04-07] MEDS ORDERED: ACET-2634 PO (08:49)
[2022-04-07 09:00] VITALS: BP_SYST 118
--- NOTE | 2022-04-07 09:05 | NUR ---
Patient given written and verbal discharge instructions and verbalizes understanding. ER MD discussed with patient the results and treatment provided. Patient in stable condition. ID arm band removed. Rx of given. Patient educated on pain management and to follow up with PMD. Pain Scale . Opportunity for questions provided and answered. Medication side effect fact sheet provided. aao x4. resp even and nonlabored. vss. ambulatory with steady gait
== END 2022-04-07 09:06 | disposition home or self-care (01) ==
LOC: SED 01:41
DX: O26.891 Other specified pregnancy related conditions, first trimester (principal); Z3A.11 11 weeks gestation of pregnancy
CPT/HCPCS: 36415; 76801; 81003; 81025; 84702; 85025; 99285

== ENCOUNTER 2022-10-20 12:07 | Emergency (ER) | payer MEDICAID ==
[~2022-10-20] VITALS: Ht 154.9 cm; Wt 78.9 kg
[~2022-10-20 12:07] MED LIST changes: +ACET-2634 PO
[2022-10-20 12:15] VITALS: BP_SYST 109
[2022-10-20] MEDS ORDERED: IBUP-1969 PO (13:41)
[2022-10-20] MEDS ORDERED: GUAI-723 PO (13:43)
[2022-10-20] MEDS ORDERED: PRED20TA PO (13:43)
[2022-10-20] MEDS ORDERED: ALBMDI INH (13:43)
[2022-10-20] MEDS ORDERED: BENZ100C92 PO (13:43)
[2022-10-20] MEDS ORDERED: LIDOCAINE 1% 10 MG/ML, 20 ML MDV INJ ONE (14:15)
== END 2022-10-20 15:30 | disposition home or self-care (01) ==
LOC: SED 12:07
DX: M67.432 Ganglion, left wrist (principal); J20.9 Acute bronchitis, unspecified; R05.9 Cough, unspecified; Z79.899 Other long term (current) drug therapy
CPT/HCPCS: 99283

== ENCOUNTER 2024-04-29 01:22 | Emergency (ER) | payer MEDICAID ==
[~2024-04-29] VITALS: Ht 154.9 cm; Wt 82.6 kg
[~2024-04-29 01:22] MED LIST changes: +ALBMDI INH; +BENZ100C92 PO; +GUAI-723 PO; +IBUP-1971 PO; +PRED20TA PO
[2024-04-29 01:30] VITALS: BP_SYST 112; PULSE 77; RESP 18; TEMP 97.9; O2SAT 98
[2024-04-29] MEDS ORDERED: LORA10TA7 PO (01:54)
[2024-04-29] MEDS ORDERED: PRED20TA PO (01:54)
[2024-04-29] MEDS: LORATADINE 10 MG TABLET PO ONE (02:28)
[2024-04-29] MEDS: predniSONE 20 MG TABLET PO ONE (02:28)
[2024-04-29] MEDS ORDERED: predniSONE 20 MG TABLET ONE (02:28)
[2024-04-29 02:54] VITALS: BP_SYST 112; PULSE 77; RESP 18; TEMP 97.9; O2SAT 98
== END 2024-04-29 02:54 | disposition home or self-care (01) ==
LOC: SED 01:22
DX: L29.9 Pruritus, unspecified (principal); Z87.11 Personal history of peptic ulcer disease; Z79.52 Long term (current) use of systemic steroids; Z79.899 Other long term (current) drug therapy
CPT/HCPCS: 99283; J7512